=== PATIENT | male | born 1995 | race African-American/Black ===

== ENCOUNTER 2021-01-31 17:40 | Emergency (ER) | payer BC ==
[2021-01-31] MEDS ORDERED: Lidocaine 1% (PF) 30 ML VIAL ONE (18:49)
== END 2021-01-31 20:13 | disposition home or self-care (01) ==
LOC: CSHERS 17:40
DX: L02.212 Cutaneous abscess of back [any part, except buttock and flank] (principal); I10 Essential (primary) hypertension
CPT/HCPCS: 10060; J2001

== ENCOUNTER 2021-11-05 22:42 | Emergency (ER) | payer BC | END 2021-11-05 23:40 | disposition home or self-care (01) | LOC: CSHERS 22:42 | DX: R09.81 Nasal congestion (principal); R05.9 Cough, unspecified; Z20.822 Contact with and (suspected) exposure to COVID-19; I10 Essential (primary) hypertension | CPT/HCPCS: 99281; U0003; U0005 ==

== ENCOUNTER 2024-01-21 13:17 | Emergency (ER) | payer BC ==
[2024-01-21] MEDS ORDERED: Ondansetron PF 4 MG/2 ML Vial ONE (13:35)
[2024-01-21] MEDS ORDERED: Dicyclomine 20 MG TAB ONE (13:35)
[2024-01-21] MEDS ORDERED: Pantoprazole 40 MG VIAL ONE (13:36)
[2024-01-21 14:07] LABS: #Basophils 0.04 10x3/uL (0.0-0.2); #Eosinophils 0.07 10x3/uL (0.0-0.5); #Monocytes 0.56 10x3/uL (0.0-1.1); #Neutrophils 3.38 10x3/uL (1.5-8.4); %Basophils 0.8 % (0.0-2.0); %Eosinophils 1.4 % (0.0-6.0); %Lymphocytes 20.7 % (18.0-47.0); %Monocytes 10.8 % (0.0-10.0); %Neutrophils 65.1 % (40.0-75.0); Hematocrit 40.9 % (38.8-50.0); Hemoglobin 13.2 g/dL (13.5-17.5); Mean Corpuscular HGB CONC 32.3 g/dL (32.0-36.0); Mean Corpuscular Hemoglobin 20.7 pg (27.0-33.0); Mean Corpuscular Volume 64.1 fL (81.2-95.1); Mean Platelet Volume 9.4 fL (7.4-10.4); Platelet Count 272 10x3/uL (150-450); RBC Distribution Width 18.5 % (11.5-14.5); Red Blood Cell (RBC) Count 6.38 10x6/uL (4.32-5.72); White Blood Cell (WBC) Count 5.2 10x3/uL (3.5-10.5)
[2024-01-21 14:11] LABS: ALT (SGPT) 47 U/L (8-55); AST (SGOT) 35 U/L (5-34); Albumin 3.2 g/dL (3.5-5.0); Alkaline Phosphatase 69 U/L (40-110); Anion Gap 13 mmol/L (10-20); BUN (Urea Nitrogen) 14 mg/dL (8.9-20.6); Bilirubin, Total 0.4 mg/dL (0.2-1.2); Calc. Creatinine Clearance 0 mL/min (70-130); Calcium 8.6 mg/dL (7.8-10.44); Carbon Dioxide 21 mmol/L (22-29); Chloride 105 mmol/L (98-107); Estimated GFR 127; Glucose 94 mg/dL (70-105); Lipase 7 U/L (8-78); Potassium 4.2 mmol/L (3.5-5.1); Protein, Total 7.2 g/dL (6.0-8.3); Sodium 135 mmol/L (136-145)
[2024-01-21 15:13] LABS: Anisocytosis MODERATE=16-30 cells (100X) (0-5/hpf); Microcytosis MARKED = >30 cells (100X) (0-5/hpf); Platelet Clumps SLIGHT
== END 2024-01-21 15:03 | disposition home or self-care (01) ==
LOC: CSHERS 13:17
DX: R10.13 Epigastric pain (principal); R10.12 Left upper quadrant pain; R10.11 Right upper quadrant pain; R11.0 Nausea; R19.7 Diarrhea, unspecified; I10 Essential (primary) hypertension; Z79.899 Other long term (current) drug therapy
CPT/HCPCS: 80053; 83690; 85025; 96374; 96375; J2405; J2470